=== PATIENT | female | born 1960 | race Caucasian/White ===

== ENCOUNTER 2019-03-30 08:31 | Outpatient (CLI) | payer OTHER ==
[~2019-03-30 08:31] MED LIST: Iopamidol 370 76% 100 ML VIAL ONE
--- NOTE | 2019-03-30 09:38 | CT ---
CT Chest Abd Pelvis W Con History: C3 4.1 endometrial cancer Comparison: None. Findings: Lungs are clear. No pneumothorax. No effusion. No mediastinal adenopathy. Heart size is mildly enlarged. No internal mammary adenopathy. No axillary adenopathy. Mild anterior hemithorax inframammary skin thickening. Small volume free fluid within the pelvis. No dilated loops of large or small bowel. Mild diverticula r disease sigmoid colon without active current inflammation. The appendix is visualized and is normal. No retroperitoneal adenopathy. Multiple calcified granuloma s of the spleen. Pancreas is unremarkable. Liver is unremarkable as well as the gallbladder. Mild periumbilical soft tissue swelling likely postsurgical in nature. Hysterectomy changes. Punctate bilateral nonobstructive renal calculi. No acute osseous abnormality. No suspicious osteolytic or osteoblastic lesions. The aortoiliac contou r is nonaneurysmal. Impression: No evidence for disease recurrence or metastasis within the chest, abdomen, or pelvis.
== END 2019-03-30 08:32 | disposition home or self-care (01) ==
LOC: BICCT 08:31
PROVIDERS: ATTEND Radiology Radiation Oncology
DX: C54.1 Malignant neoplasm of endometrium (principal)
CPT/HCPCS: 71260; 74177; Q9967